=== PATIENT | male | born 2000 ===

== ENCOUNTER 2020-12-08 17:31 | Emergency (ER) | payer MEDICAID | END 2020-12-08 17:52 | disposition left against medical advice (07) | LOC: ER 17:31 → EDBD 17:31 → ER 17:52 | DX: S20.212A Contusion of left front wall of thorax, initial encounter (principal); M79.604 Pain in right leg; Z53.29 Procedure and treatment not carried out because of patient's decision for other reasons; V86.56XA Driver of dirt bike or motor/cross bike injured in nontraffic accident, initial encounter; Y93.89 Activity, other specified; Y92.89 Other specified places as the place of occurrence of the external cause; Y99.8 Other external cause status ==